=== PATIENT | male | born 1995 | race Caucasian/White ===

== ENCOUNTER 2018-09-24 10:52 | Emergency (ER) | payer OTHER ==
[2018-09-24] MEDS ORDERED: SODIUM CHLORIDE 1,000 ML IV STA (11:13)
[2018-09-24 11:18] VITALS: BP 120/62; TEMP 97.9; BMI 25.8
--- NOTE | 2018-09-24 11:33 | PDOC ---
History of Present Illness - History of Present Illness Initial Comments: 09/24/18 11:52 The patient is a 23 year old male with no past medical history who presents with nausea, vomiting and diarrhea since last night. He states his mother prepared dinner (chicken and rice) and reportedly developed his symptoms shortly afterwards. He reports his family members who ate the same dinner are well and asymptomatic. He reports about 4 episodes each of nonbilious/nonbloody emesis and watery brown stools. He reports his emesis is white and mostly food . He states he has not been able to eat much secondary to nausea, however, states he was given zofran and fluids prior to ED arrival which significantly alleviated his nausea. He also reports some intermittent abdominal cramping which he states feels like constipation. 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 Allergies: None Denies surgical history Denies toxic habits <Pauline Vasquez - Last Filed: 09/24/18 11:52> - General History Source: Patient Exam Limitations: No Limitations <Destiney Lowe - Last Filed: 09/24/18 12:24> - General Chief Complaint: Nausea/Vomiting Stated Complaint: Nausea/Vomiting Time Seen by Provider: 09/24/18 11:13 Past History <Pauline Vasquez - Last Filed: 09/24/18 11:52> - Suicide/Smoking/Psychosocial Hx Smoking History: Never smoked <Destiney Lowe - Last Filed: 09/24/18 12:24> - Past Medical History Allergies/Adverse Reactions: Allergies Allergy/AdvReac Type Severity Reaction Status Date / Time No Known Allergies Allergy Verified 09/24/18 11:18 Home Medications: Ambulatory Orders Ondansetron [Zofran Odt -] 4 mg SL TID PRN #6 od.tablet 09/24/18 Review of Systems - Review of Systems Able to Perform ROS?: Yes Comments:: 09/24/18 11:52 Constitutional: no fevers or chills. HEENT: +headache. No dizziness. No congestion. CVS: no cp or syncope. Resp: no sob. No cough. Gastrointestinal: +abdominal pain, nausea, diarrhea, vomiting. Genitourinary: no urinary sx, hematuria. MUSCULOSKELETAL: No joint pain and swelling. No neck or back pain. SKIN: no redness or skin changes, no discharge, no rash. No wounds. Hematologic: no easy bruising/bleeding. NEUROLOGIC: + headache, No dizziness, LOC or altered mental status. No weakness , numbness or tingling. Allergic/Immunologic: no allergies All other systems reviewed and negative, or as documented in HPI. <Pauline Vasquez - Last Filed: 09/24/18 11:52> *Physical Exam - Vital Signs Last Vital Signs Temp Pulse Resp BP Pulse Ox 97.9 F 107 H 18 120/62 99 09/24/18 11:16 09/24/18 11:16 09/24/18 11:16 09/24/18 11:16 09/24/18 11:16 - Physical Exam Comments: 09/24/18 11:53 General: Well appearing, awake and alert, NAD. HEENT: NCAT, PERRL, EOMI, clear conjunctiva, anicteric, moist mucus membranes, clear oropharynx, no oral lesions.. Neck: neck supple, FROM Resp: CTAB, normal and even respirations, no respiratory distress CVS: RRR, no murmurs, 2+ peripheral pulses throughout, no peripheral edema Abdomen: soft, NTND, no peritoneal signs. Back: nontender, normal inspection and ROM MSK: no edema, WAGNER x4, ROM intact. No clubbing or cyanosis. normal bulk and tone. Extremities: no calf tenderness Neuro: alert, oriented appropriately; no focal neurologic deficits Skin: warm and well perfused, cap refill <2 sec, normal color <Pauline Vasquez - Last Filed: 09/24/18 11:52> - Vital Signs Last Vital Signs Temp Pulse Resp BP Pulse Ox 97.9 F 107 H 18 120/62 99 09/24/18 11:16 09/24/18 11:16 09/24/18 11:16 09/24/18 11:16 09/24/18 11:16 <Destiney Lowe - Last Filed: 09/24/18 12:24> Moderate Sedation - Procedure Monitoring Vital Signs: Procedure Monitoring Vital Signs Temperature 97.9 F 09/24/18 11:16 Pulse Rate 107 H 09/24/18 11:16 Respiratory Rate 18 09/24/18 11:16 Blood Pressure 120/62 09/24/18 11:16 O2 Sat by Pulse Oximetry (%) 99 09/24/18 11:16 <Pauline Vasquez - Last Filed: 09/24/18 11:52> - Procedure Monitoring Vital Signs: Procedure Monitoring Vital Signs Temperature 97.9 F 09/24/18 11:16 Pulse Rate 107 H 09/24/18 11:16 Respiratory Rate 18 09/24/18 11:16 Blood Pressure 120/62 09/24/18 11:16 O2 Sat by Pulse Oximetry (%) 99 09/24/18 11:16 <Destiney Lowe - Last Filed: 09/24/18 12:24> ED Treatment Course - LABORATORY CBC & Chemistry Diagram: 09/24/18 10:25 09/24/18 10:25 - ADDITIONAL ORDERS Additional order review: 09/24/18 10:25 RBC 4.59 MCV 91.7 MCHC 33.6 RDW 13.1 MPV 7.9 Neutrophils % 84.6 H Lymphocytes % 5.4 L Monocytes % 9.5 Eosinophils % 0.0 Basophils % 0.5 <Pauline Vasquez - Last Filed: 09/24/18 11:52> - LABORATORY CBC & Chemistry Diagram: 09/24/18 10:25 09/24/18 10:25 <Destiney Lowe - Last Filed: 09/24/18 12:24> Medical Decision Making - Medical Decision Making 09/24/18 11:35 DDx abdominal pain: Renal colic, biliary colic, metabolic/electrolyte derangements. GERD, PUD, esophageal spasm, pancreatitis, hepatitis, food poisoning, colitis, gastroenteritis, cholecystitis, hernia, appendicitis, diverticulitis. doubt appy/diverticulitis or intra abdominal pathology, as no abdominal sx or focal lower quad tenderness. See HPI for details Vital signs reviewed, wnl. initial tachy, which improved. afebrile. Prior notes reviewed, including admissions, discharges and consultations. laboratory results and imaging reviewed, basic labs and lytes wnl, normal Lipase /LFTs. ED course: continued IVF. s/p zofran with EMS PO challenge without difficulty. bland diet, supportive care and hydration rx zofran PRN for n/v expectant management, sx should improve <24 hours if likely food poisoning. return precautions provided, including worse sx/fever/worse abdominal pain or dehydration. Dispo: Pt informed of my clinical impression, treatment recommendations and disposition plan. All questions answered to patient's satisfaction and expressed understanding and comfort with this. Reasons for returning to the ED sooner discussed with the patient otherwise, follow up with primary care physician. At the time of discharge, the patient is alert, clinically improved, tolerating po and verbalizes understanding of instructions. Patient does not suffer from an acute life-threatening medical condition at this time she is safe for outpatient follow-up. 09/24/18 12:22 <Destiney Lowe - Last Filed: 09/24/18 12:24> *DC/Admit/Observation/Transfer - Attestations Scribe Attestion: 09/24/18 11:54 Documentation prepared by Pauline Vasquez, acting as anesthesiology medical doctor for Destiney Lowe MD <Pauline Vasquez - Last Filed: 09/24/18 11:52> - Discharge Dispostion Decision to Admit order: No - Attestations Physician Attestion: 09/24/18 11:35 I, Destiney Lowe MD, attest that this document has been prepared under my direction and personally reviewed by me in its entirety. I further attest, that it accurately reflects all work, treatment, procedures and medical decision -making performed by me. <Destiney Lowe - Last Filed: 09/24/18 12:24> Diagnosis at time of Disposition: Abdominal pain, vomiting, and diarrhea - Discharge Dispostion Disposition: HOME Condition at time of disposition: Improved - Prescriptions Prescriptions: Ondansetron [Zofran Odt -] 4 mg SL TID PRN #6 od.tablet PRN Reason: Nausea And/Or Vomiting - Referrals Referrals: [facility] [place] [facility] [Provider Group] [facility] [Provider Group] - Patient Instructions Printed Discharge Instructions: [place] Diet, DI for Diarrhea and Traveler's Diarrhea -- Adult, DI for Nausea -- Adult, DI for Vomiting -- Adult Additional Instructions: Your laboratory / imaging results were normal, you were given fluids and zofran with EMS with improvement. you most likely have the case of gastroenteritis from food poisoning or viral infection. this should resolve in <24 hours Follow up with your physician as instructed, take your medications as instructed including Zofran 4mg under the tongue three times a day as needed for nausea/vomiting Return if worsening symptoms including fevers, headache, vomiting, visual or hearing disturbances, abdominal pain, chest pain, shortness of breath, syncope, dehydration, inability to take things by mouth/vomiting, altered mental status, or worsening concerning symptoms. your medications on discharge include_ side effects may include upset stomach, abdominal pain, vomiting, or diarrhea. do not drink alcohol with your medications. - Post Discharge Activity Forms/Work/School Notes: Back to Work
[2018-09-24 11:44] LABS: BASO % 0.5 % (0-2.0); HEMATOCRIT 42.1 % (35.4-49); HEMOGLOBIN 14.1 GM/dL (11.7-16.9); LYMPH % 5.4 % (8-40); MCH 30.8 pg (25.7-33.7); MCHC 33.6 g/dl (32.0-35.9); MEAN CELL VOLUME 91.7 fl (80-96); MEAN PLT VOLUME 7.9 fl (7.5-11.1); MONO % 9.5 % (3.8-10.2); NEUT % 84.6 % (42.8-82.8); PLATELET COUNT 279 K/MM3 (134-434); RBC 4.59 M/mm3 (4.00-5.60); RDW 13.1 % (11.9-15.9); WHITE BLOOD COUNT 9.2 K/mm3 (4.0-10.0)
[2018-09-24 11:58] LABS: ALBUMIN 3.4 g/dl (3.4-5.0); ALK PHOS 60 U/L (45-117); ANION GAP 3 MMOL/L (8-16); BILIRUBIN,TOTAL 0.5 mg/dL (0.2-1); BLOOD UREA NITROGEN 19 mg/dL (7-18); CALCIUM 8.2 mg/dL (8.5-10.1); CHLORIDE 108 mmol/L (98-107); CO2 26 mmol/L (21-32); CREATININE 0.8 mg/dL (0.55-1.3); GLUCOSE,RANDOM 110 mg/dL (74-106); LIPASE 194 U/L (73-393); POTASSIUM 4.2 mmol/L (3.5-5.1); SGOT/AST 40 U/L (15-37); SGPT/ALT 50 U/L (13-61); SODIUM 137 mmol/L (136-145)
[2018-09-24 12:26] VITALS: PULSE 90
[2018-09-24] MEDS ORDERED: ACETAMINOPHEN 325 MG TABLET (FP) ONE (13:02)
[2018-09-24] MEDS ORDERED: KETOROLAC TROMETHAMINE 30 MG/1 ML VIAL ONE (22:14)
== END 2018-09-24 13:24 | disposition home or self-care (01) ==
LOC: JER 10:52
PROC: 3E0337Z Introduction of Electrolytic and Water Balance Substance into Peripheral Vein, Percutaneous Approach (ICD-10-PCS; principal; 2018-09-24)
DX: K52.9 Noninfective gastroenteritis and colitis, unspecified (principal)
CPT/HCPCS: 36415; 80053; 83690; 85025; 99282-25; J7030